=== PATIENT | male | born 1995 | race Caucasian/White ===

== ENCOUNTER 2018-04-12 11:40 | Emergency (ER) | payer BC, OTHER ==
--- NOTE | 2018-04-12 14:12 | EDPHY ---
HPI/HX/ROS/PE/MDM Narrative: CLINICAL IMPRESSION: Self harm, philomena ASSESSMENT/PLAN: Patient is a 22-year-old male with a significant history of borderline personality disorder who presents with insomnia, self cutting, anxiety, hearing voices and possible medication withdrawal. Patient is afebrile, his speech is pressured, he is anxious however not toxic-appearing. Physical examination reveals scattered, superficial lacerations across bilateral anterior neck, bilateral upper extremities and right anterior chest. There was no evidence of gaping wounds, cellulitis, necrotizing skin infection or deep space infection. CBC revealed mild, nonspecific leukocytosis, no evidence of anemia. His vital signs were reviewed and no findings to suggest bacterial illness. Metabolic panel with no metabolic abnormalities or acute kidney injury. Tylenol, salicylate and alcohol negative. Drug screen positive for cannabinoid. There were no clinical findings to suggest intoxication, metabolic abnormality or other toxidrome. The patient was placed on an M1 hold while in the emergency department and is awaiting formal behavioral health consultation at this time. Under my care the patient did have an episode of punching himself in the face and acting very aggressive towards the staff. 10 mg of IM Haldol was administered, patient de-escalated appropriately. Case, results and plan of care discussed with Dr. [place] who will resume care of this patient at this time. This patient remained hemodynamically stable under my care. DIFFERENTIAL DX: Psychosis including but not limited to chronic psychosis, medication noncompliance, medication side effect, depression and illicit drug use. ED COURSE: 14 15: Case management at bedside, will proceed with formal behavioral health evaluation. 2:42 p.m.: Case discussed with Dr. [place], patient formally put on an M1 hold. 5:23 p.m.: Patient is very agitated, slapping himself in the face. Discussed with Cadence with case management. She would like us to hold off on benzodiazepines at this moment until she can formally re-evaluate him. CHIEF COMPLAINT: Insomnia, self-harm, withdrawal HPI: Patient is a 22-year-old male with a significant history of borderline personality disorder who presents to the emergency department complaining of insomnia, self cutting, anxiety, hearing voices and possible medication withdrawal. Patient reports that he recently went on an alcohol binge and discontinued his Lexapro, Lamictal and Seroquel all at once without a taper. Over these last 2 weeks he has also been used on cocaine and marijuana. Yesterday he had an episode of feeling very anxious, hearing voices and ultimately started self cutting on his arms, chest and neck as he was feeling so anxious. Patient is followed by Psychiatry however he is new to this area. He has not had formal psychiatric evaluation in this area. Patient denies any recent fevers, chills, headache, dizziness, chest pain or shortness of breath. He denies any suicidal ideation or homicidal ideation. Patient is present with mother, she did has no concerns about SI or HI either. PMH: Borderline personality Pertinent Past Surgical History: Denies Family History: Not contributory Social History: Smoker, ETOH and illicit drug use REVIEW OF SYSTEMS: All other systems negative Constitutional: No fever, no chills, appetite change. Eyes: No discharge, vision change ENT: No sore throat, congestion, ear pain. Cardiovascular: No chest pain, no palpitations. Respiratory: No cough, no shortness of breath. Gastrointestinal: No abdominal pain, no vomiting, diarrhea. Genitourinary: No hematuria, dysuria, flank pain, pelvic pain Musculoskeletal: No back pain, joint swelling, joint pain, myalgias. Skin: Lacerations. No rashes, color change. Neurological: No headache, dizziness, weakness. PHYSICAL EXAM: General Appearance: Well nourished, well developed. Very anxious appearing however not toxic-appearing. HENT: Normocephalic, atraumatic. Bilateral external ears are normal. Bilateral tympanic membranes are normal with pearly trujillo reflex. Nares are clear, mucosa is pink. Oropharynx is clear, uvula is midline. There is no tonsillar enlargement or exudate. The dentition is normal.] Eyes: PERRLA, no acute vision change, nystagmus, swelling, discharge, pain or photosensitivity. Conjunctiva pink, no pallor or injection Neck: Supple, nontender, no lymphadenopathy, no midline pain, FROM, no meningismus. Anterior neck with multiple superficial lacerations, healing. No surrounding erythema, induration or drainage Respiratory: There are no retractions, lungs are clear to auscultation. Cardiac: Initially mildly tachycardic-normalized, no murmurs or gallops. Gastrointestinal: Abdomen is soft, nontender, bowel sounds normal, no masses/ hernia, no rigidity, guarding or focal peritoneal findings. Neurological: Alert and oriented x 3, CN 2-12 grossly intact, normal gait no ataxia, DTR's intact, normal sensation and strength Skin: Multiple superficial lacerations along anterior bilateral neck, right anterior chest and bilateral upper extremities. There is no surrounding erythema, induration or warmth. Warm, dry, no rashes, no nodules on palpation. Musculoskeletal: Extremities are symmetrical, full range of motion, no tenderness, deformity, swelling, or erythema. Psychiatric: Patient is oriented X 3, he is agitated and anxious. His speech is very pressured. MEDICAL DECISION MAKING: Patient was seen independently. Secondary supervising physician at time of evaluation was Dr. Colorado. Diagnosis: Self harm. New, requires workup Summary: See Assessment and Plan for summary of ED visit Clinical lab tests: ordered / reviewed. Independent visualization of images, tracing, or specimens: Not applicable. Decision to obtain medical records or history from someone other than the patient: Yes Review / Summarize previous medical records: Yes Discussed patient with another provider: Yes Patient Progress: Stable, dispo to be determined. (Jeanne Coles) ED Course: 9:00 p.m.-this patient was signed over to Dr. Donahue at shift change. He is on an M1 hold for suicidal ideation and has been seen by mental health. Looking for inpatient mental health disposition. He received Haldol 10 mg IM and Ativan 1 mg orally during my shift. (Barbi Colorado) MDM: Care assumed at 9:00 p.m. Patient on a hold for suicidal ideation; evaluation in progress. 2300: signed out to [facility] with disposition pending. (Robin Donahue) 6:00 a.m.- Patient has been stable throughout my shift. He is awaiting mental health re- evaluation this morning. His mother will be coming to the emergency department and safe discharge plan is in place. I anticipate the case will be signed out to the oncoming provider Dr. Cho pending mental health reassessment. ( Elizabeth Mojica) - Data Points Laboratory Results: Laboratory Results 04/12/18 14:30 04/12/18 14:30 Medications Given: Discontinued Medications Haloperidol Lactate (Haldol Injection) 10 mg IM EDNOW ONE Stop: 04/12/18 17:38 Last Admin: 04/12/18 17:52 Dose: 10 mg Lorazepam (Ativan) 1 mg PO EDNOW ONE Stop: 04/12/18 19:18 Last Admin: 04/12/18 19:35 Dose: 1 mg General Initial Vital Signs: Initial Vital Signs Temperature (C) 37.2 C 04/12/18 11:55 Heart Rate 117 H 04/12/18 11:55 Respiratory Rate 16 04/12/18 11:55 Blood Pressure 106/75 04/12/18 11:55 O2 Sat (%) 93 04/12/18 11:55 O2 Delivery Mode Room Air Allergies/Adverse Reactions: No Known Allergies Allergy (Verified 04/12/18 20:04) Home Medications: Medication Instructions Recorded Escitalopram Oxalate [Lexapro] 10 mg PO DAILY 04/12/18 QUEtiapine FUMARATE [Seroquel 300 mg PO HS 04/12/18 300mg (*)] lamOTRIGine [Lamotrigine] 100 mg PO DAILY 04/12/18 Escitalopram Oxalate [Lexapro] 10 mg PO DAILY #7 tab 04/13/18 QUEtiapine FUMARATE [Seroquel 300 mg PO HS #7 tab 04/13/18 300mg (*)] lamoTRIgine [LamICTAL 100 MG (*)] 100 mg PO DAILY #7 tab 04/13/18 Departure - Departure Disposition: Home, Routine, Self-Care Clinical Impression: Borderline personality disorder Condition: Good Instructions: Borderline Personality Disorder (DC) Additional Instructions: Follow up with the resources provided. Return for worsening of condition. Referrals: [facility],. [Clinic] - As per Instructions Prescriptions: Escitalopram Oxalate [Lexapro] 10 mg PO DAILY #7 tab lamoTRIgine [LamICTAL 100 MG (*)] 100 mg PO DAILY #7 tab QUEtiapine FUMARATE [Seroquel 300mg (*)] 300 mg PO HS #7 tab
[2018-04-12 14:40] LABS: PLATELET COUNT 261 10^3/uL (150-400)
--- NOTE | 2018-04-12 16:13 | ASMTCMCOM ---
CM Note CM Note Notes: Pt seen at the request of ED RN. Pt was initially reserved but opened up and appeared to be more comfortable with the time. Pt reported that he recently took himself off of Lexapro, Seroquel, and Lamictal. He further reported that he has a long history of ETOH, cocaine, meth, hallucinogen and THC use. He stated that after a significant cocaine and alcohol binge he also took himself off of his psychiatric medications without consulting his psychiatrist. He described a feeling of "something coming out of him" and he tried to get it out of him by using the cut glass from a candle. He has a number of superficial cuts on his neck chest and arms. His current prescriber is Dr. Rabago in [place]. He stated that his psychiatrist diagnosed him with BPD. He is currently looking for a local psychiatrist and would like additional referrals. Pt has outpatient care registered psychotherapist and CAC III as well as a laborer aquatic life who was in the room with him. MOC was also in the room and provided additional personal history. Pt. reported that he sleeps very little maybe 2-3 hours per night. MOC & pt reported that pt. has a history of childhood trauma. Pt presented with pressured speech and minimal insight. He described his recent episode as scary and uncontrollable. MOC is concerned for safety if an additional episode occurs. Pt was placed on M1 and will be evaluated by TLC. Date Signed: 04/12/2018 04:13 PM Electronically Signed By:Aureliano Alford LCSW
[2018-04-12] MEDS ORDERED: HALOPERIDOL LACT 5 MG/ML INJ IM ONE (17:37)
[2018-04-12] MEDS ORDERED: LORazepam 1 MG TAB PO ONE (19:17)
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
--- NOTE | 2018-04-12 23:09 | ASMTTCLDSP ---
[facility] Discharge Disposition Disposition: Answers: Discharge Disposition Notes: Notes: In consultation with [facility] ED physician, Robin Donahue MD, and on-call psychiatrist, Mehdi Syed MD, both concurred that pt does not appear to meet 27-65 criteria requiring psychiatric hospitalization as pt does not appear to be an imminent risk of harm to self, others, or gravely disabled due to a mental illness condition. Discharge Concerns/Recommendations: Notes: Pt appears to have a substance induced psychosis is already enrolled with may supportive out pt resources. [facility] has coordinated with PT's mother and a safety plan has been created, pt is bindu for safety and compliance with the plan. Pt's mother will be able to roller picker the PT at 11 - 11:30 am on 04/13/18. She is also attempting to reach out to pt's primary care to get some bridge medication until his upcoming psychiatric appt for a med re-eval. Was patient given the Answers: Not applicable Inpatient Behavioral Health Prohibited Belongings List while in the ED? Psychiatrist vacating M1 Mehdi Syed MD Hold: Date and time M1 hold 04/13/2018 10:00 AM vacated (time format is hh:mm): Type of Hold: Answers: M1/72-hour Hold Hold initiated by: Answers: ED Physician Date Signed: 04/12/2018 11:08 PM Electronically Signed By:Nestor Leal
[2018-04-13 08:17] VITALS: BP 145/66
== END 2018-04-13 10:44 | disposition home or self-care (01) ==
DX: F60.9 Personality disorder, unspecified (principal); S21.111A Laceration without foreign body of right front wall of thorax without penetration into thoracic cavity, initial encounter; S11.91XA Laceration without foreign body of unspecified part of neck, initial encounter; S41.111A Laceration without foreign body of right upper arm, initial encounter; S41.112A Laceration without foreign body of left upper arm, initial encounter; F41.9 Anxiety disorder, unspecified; G47.00 Insomnia, unspecified; X78.9XXA Intentional self-harm by unspecified sharp object, initial encounter; Y92.9 Unspecified place or not applicable; Y93.9 Activity, unspecified; Y99.9 Unspecified external cause status
CPT/HCPCS: 80305; G0480; J1630